=== PATIENT | male | born 1965 | race Caucasian/White ===

== ENCOUNTER → 2023-07-29 08:14 | Day surgery (SDC) | payer BC, SELFPAY ==
[2023-07-29 08:35] VITALS: BMI 46.1
== END ==
LOC: CATH 08:14
PROVIDERS: ATTENDING PHYSICIAN Internal Medicine Cardiovascular Disease; FAMILY PHYSICIAN Family Medicine
DX: I34.0 Nonrheumatic mitral (valve) insufficiency (principal); Z86.73 Personal history of transient ischemic attack (TIA), and cerebral infarction without residual deficits; I70.0 Atherosclerosis of aorta; I25.2 Old myocardial infarction; Z79.4 Long term (current) use of insulin; Z79.82 Long term (current) use of aspirin; Z79.84 Long term (current) use of oral hypoglycemic drugs; Z95.5 Presence of coronary angioplasty implant and graft; I10 Essential (primary) hypertension
CPT/HCPCS: 93312; 93320; 93325

== ENCOUNTER → 2023-08-11 17:47 | Outpatient (REF) | payer BC, SELFPAY | LOC: MRI 3T 17:47 | PROVIDERS: ATTENDING PHYSICIAN Specialist; FAMILY PHYSICIAN Family Medicine | DX: I63.112 Cerebral infarction due to embolism of left vertebral artery (principal); I63.111 Cerebral infarction due to embolism of right vertebral artery | CPT/HCPCS: 70544; 70547 ==

== ENCOUNTER → 2024-05-24 08:22 | Outpatient (REF) | payer BC, SELFPAY | LOC: HWRAD 08:22 | PROVIDERS: ATTENDING PHYSICIAN Nurse Practitioner Family; FAMILY PHYSICIAN Family Medicine; REFERRING PHYSICIAN Internal Medicine Cardiovascular Disease | DX: R06.02 Shortness of breath (principal) | CPT/HCPCS: 71046 ==

== ENCOUNTER 2025-03-01 19:30 | Observation (INO) | payer BC, SELFPAY ==
[2025-03-01 13:17] VITALS: BP 146/81
[2025-03-01 14:27] VITALS: BP 122/63
[2025-03-01 15:07] LABS: ALT (SGPT) 16 U/L (0-50); AST (SGOT) 18 U/L (17-59); Albumin 4.3 g/dl (3.5-5.0); Alkaline Phosphatase 75 U/L (38-126); Blood Urea Nitrogen 37 mg/dl (9-20); Calcium 9.1 mg/dl (8.4-10.2); Carbon Dioxide 22 mmol/L (22-30); Chloride 108 mmol/L (98-107); Glucose 103 mg/dl (70-99); Potassium 4.6 mmol/L (3.5-5.1); Sodium 139 mmol/L (135-145); Total Protein 7.0 g/dl (6.3-8.2); eGFR 18.87
[2025-03-01 15:11] LABS: Hematocrit 34.4 % (39.0-52.0); Hemoglobin 11.5 g/dL (13.0-18.0); Mean Corp Hgb Conc. 33.4 g/dL (33.0-37.0); Mean Corpuscular Volume 85.6 fL (80.0-94.0); Nucleated Red Blood Cells % 0 % (-); Platelet Count 205 10^3/uL (130-400); Red Cell Dist. Width 14.9 % (11.5-14.5)
--- NOTE | 2025-03-01 15:37 | ED.GENMED ---
History of Present Illness
<Alysha Dhaliwal FRONT MAKER LOCKSTITCH - Last Filed: 03/01/25 19:09>
General
Chief Complaint: Abnormal Lab Value
Source: patient
Exam Limitations: none
Time Seen by Provider: 03/01/25 14:21
Nursing documentation reviewed up to this point in time: agreed with
History of Present Illness
History of Present Illness:
59-year-old male with history of HTN, AK, cardiac stent 2021, GERD, IDDM presents at the request of his PCP for outpatient lab work yesterday showing a creatinine of 3.4 when previously patient states on 12/16 it was 1.72
Past History
<Alysha Dhaliwal, FRONT MAKER LOCKSTITCH - Last Filed: 03/01/25 19:09>
Past History
ED Past Medical History: CAD, GERD, HTN, NIDDM, AK, Other (Sleep apnea, Menieres disease) and Other (Meniere's)
ED Past Surgical History: Cardiac (Stent) and Orthopedic (Left ankle surgery)
Social History
Tobacco: Non-smoker
Alcohol: None
Personal: Single
Living: alone
Employment: Employed
Review of Systems
<Alysha Dhaliwal, FRONT MAKER LOCKSTITCH - Last Filed: 03/01/25 19:09>
Review of Systems
Allergies reviewed?: Yes
All Other Systems: ROS reviewed and negative except as documented in HPI and ROS
Constitutional: Denies fever, fatigue or chills
Respiratory: Denies trouble breathing
Cardiac: Denies chest pain
ABD/GI: Denies abdominal pain, nausea, vomiting, diarrhea or anorexia
: Denies dysuria, frequency, difficulty voiding or urgency
Musculoskeletal: Reports no symptoms
Skin: Reports no symptoms
Neurological: Reports no symptoms
Phy Exam
<Alysha Dhaliwal, FRONT MAKER LOCKSTITCH - Last Filed: 03/01/25 19:09>
Physical Exam
Physical Exam:
GENERAL: No acute distress. A&Ox3.
CONSTITUTIONAL: Afebrile.
EYES: clear, conjunctivae normal
ENMT: moist mucus membranes, Pharynx nl
RESPIRATORY: Regular respirations, nonlabored, lungs clear.
CARDIOVASCULAR: Regular rate and rhythm, no murmurs, no rubs.
GI: Soft, nontender, normal BS
MUSCULOSKELETAL: Moves with ease. Well perfused.
SKIN: Warm, dry, pink
PSYCH: Normal mood and affect. Well kept, interactive and appropriate
NEUROLOGIC: Awake, alert and oriented. No focal neurological deficits
Course
<Alysha Dhaliwal NP - Last Filed: 03/01/25 19:09>
Orders/Labs/Results
Orders:
Orders
03/01/25 13:40
Bladder Scan- Treatment ONCE
03/01/25 14:39
Complete Blood Count/With Diff Urgent
Comprehensive Metabolic Panel Urgent
03/01/25 16:25
US Renal With Bladder Urgent
Comment:
Reason For Exam: New onset kidney failure
03/01/25 16:42
Urinalysis Reflex To Culture Urgent
Date Specimen was Collected: 03/01/25
Time Specimen was Collected: 16:41
Urine Microscopic Reflex Cult Urgent
03/01/25 18:00
0.9% Sodium Chloride 1000 ml [Nss] 1,000 ml IV 150 mls/hr
03/01/25 19:06
NEPHROLOGY CONSULT Urgent
Consulting Provider: Cherry Juarez
Was physician already notified: Yes
Reason for consult: New onset renal insufficiency
Abnormal Lab Results
03/01/25 03/01/25
14:39 16:42
RBC 4.02 L 10^6/uL
(4.70-6.10)
Hgb 11.5 L g/dL
(13.0-18.0)
Hct 34.4 L %
(39.0-52.0)
RDW 14.9 H %
(11.5-14.5)
Chloride 108 H mmol/L
(98-107)
BUN 37 H mg/dl
(9-20)
Creatinine 3.6 H mg/dL
(0.7-1.3)
Glucose 103 H mg/dl
(70-99)
Urine Bacteria (Reflex) Few A
(Negative)
Urine Glucose 4+ A
(Negative)
Urine Albumin (Reflex) 1+ A
(Neg - Trace)
03/01/25 14:39
03/01/25 14:39
Vital Signs
Initial and Last Documented VS:
Initial Vital Signs
Temp Pulse Resp BP Pulse Ox
36.6 C 69 16 146/81 98
03/01/25 13:17 03/01/25 13:17 03/01/25 13:17 03/01/25 13:17 03/01/25 13:17
Last Documented Vital Signs
Temp Pulse Resp BP Pulse Ox
36.6 C 0 17 122/63 98
03/01/25 13:17 03/01/25 15:04 03/01/25 14:30 03/01/25 14:27 03/01/25 15:38
Bar Finish Operator consulted with Physician
Bar Finish Operator consulted with physician?: Yes
Name of Physician Consulted: Maddy
<Lee Castañeda, DO - Last Filed: 03/01/25 19:14>
Orders/Labs/Results
Orders:
Orders
03/01/25 13:40
Bladder Scan- Treatment ONCE
03/01/25 14:39
Complete Blood Count/With Diff Urgent
Comprehensive Metabolic Panel Urgent
03/01/25 16:25
US Renal With Bladder Urgent
Comment:
Reason For Exam: New onset kidney failure
03/01/25 16:42
Urinalysis Reflex To Culture Urgent
Date Specimen was Collected: 03/01/25
Time Specimen was Collected: 16:41
Urine Microscopic Reflex Cult Urgent
03/01/25 18:00
0.9% Sodium Chloride 1000 ml [Nss] 1,000 ml IV 150 mls/hr
03/01/25 19:06
NEPHROLOGY CONSULT Urgent
Consulting Provider: Cherry Juarez
Was physician already notified: Yes
Reason for consult: New onset renal insufficiency
Abnormal Lab Results
03/01/25 03/01/25
14:39 16:42
RBC 4.02 L 10^6/uL
(4.70-6.10)
Hgb 11.5 L g/dL
(13.0-18.0)
Hct 34.4 L %
(39.0-52.0)
RDW 14.9 H %
(11.5-14.5)
Chloride 108 H mmol/L
(98-107)
BUN 37 H mg/dl
(9-20)
Creatinine 3.6 H mg/dL
(0.7-1.3)
Glucose 103 H mg/dl
(70-99)
Urine Bacteria (Reflex) Few A
(Negative)
Urine Glucose 4+ A
(Negative)
Urine Albumin (Reflex) 1+ A
(Neg - Trace)
03/01/25 14:39
03/01/25 14:39
Vital Signs
Initial and Last Documented VS:
Initial Vital Signs
Temp Pulse Resp BP Pulse Ox
36.6 C 69 16 146/81 98
03/01/25 13:17 03/01/25 13:17 03/01/25 13:17 03/01/25 13:17 03/01/25 13:17
Last Documented Vital Signs
Temp Pulse Resp BP Pulse Ox
36.6 C 0 17 122/63 98
03/01/25 13:17 03/01/25 15:04 03/01/25 14:30 03/01/25 14:27 03/01/25 15:38
<Alysha Dhaliwal FRONT MAKER LOCKSTITCH - Last Filed: 03/01/25 19:09>
MDM/Problems Addressed
Differential Diagnosis Includes:
Acute renal insufficiency
MDM/Problems Addressed:
59-year-old male with history of HTN, AK, cardiac stent 2021, GERD, IDDM presents at the request of his PCP for outpatient lab work yesterday showing a creatinine of 3.4 when previously patient states on 12/16 it was 1.72 at his Endocrinologists
office.
Pt denies any systemic symptoms.
CBC with no clinically significant abnormality
CMP: BUN/Creat 37/3.6 GFR 18.87 otherwise normal UA:
Negative save for plus for glucose and +1 albumin
[address] Neph[address] Juarez.
6:15 PM:
Ultrasound renal with bladder radiology report read: IMPRESSION: No evidence for pelvicalyceal dilation of either kidney. Renal parenchymal thickness is preserved bilaterally.
No focal abnormality urinary bladder. Ureteral jets are not visualized. Postvoid bladder residual with estimated volume of 79 cc.
7:00 PM:
Results discussed with Dr. Juarez who requests patient be admitted, IVF's and have labs rechecked tomorrow
Hospitalist notified of admission
<Alysha Dhaliwal, FRONT MAKER LOCKSTITCH - Last Filed: 03/01/25 19:09>
*Pulse Oximetry
SaO2: 98
Oxygen Mode of Delivery: Room air
Patient hypoxic: not evaluated
*Critical Care Note
Total Time (30-74mins, 75-104mins- exclusive of procedures): Not Applicable
ED Attending Note
<Alysha Dhaliwal FRONT MAKER LOCKSTITCH - Last Filed: 03/01/25 19:09>
-
Portions of this chart may have been created with voice recognition software.� Occasional wrong word or��sound alike� substitutions may have occurred due to the inherent limitations of voice recognition software.
<Lee Castañeda DO - Last Filed: 03/01/25 19:14>
ED Attending Note
Patient seen and examined by attending physician: Yes
I performed the substantive portion of visit, reviewed & personally made and approve the management plan that is documented in note by myself or MELISSA.: Yes
ED Attending Note:
I evaluated patient bedside. The patient has KAVIN; he was given IV fluids. Creatinine today is 3.6 up from 1.2 in 2022. Postvoid residual relatively low and otherwise renal ultrasound unremarkable. Nephrology has been contacted.
Discharge Plan
Departure
Patient Disposition: Admit
Date of Disposition: 03/01/25
Time of Disposition: 19:07
Admit to: Med/Surg
Presentation/result/management discussed w/ accepting MD/DO: Hospitalist
Patient with high blood pressure during this ER visit?: No
Condition: Good
Discharge Problem:
Acute renal insufficiency
Prescriptions:
No Action
allopurinol 100 MG tablet
100 mg PO QPM
metformin 1,000 MG tablet
1,000 mg PO BID
losartan [Cozaar] 100 MG tablet
100 mg PO HS
magnesium 200 MG tablet
500 mg PO DAILY
insulin glargine [Lantus Solostar U-100 Insulin] 300 UNITS/3 ML insulin pen
32 units SC HS
insulin aspart U-100 [Novolog FlexPen U-100 Insulin] 300 UNITS/3 ML insulin pen
0 units SC AC
Patient Comments:
<70 0
100-149 15
150-199 17
200-249 19
250-299 21
300-348 23
350 + 25 and call
atorvastatin 80 MG tablet
80 mg PO QPM Qty: 30 11RF
aspirin 81 MG tablet,chewable
81 mg PO DAILY 0RF
lidocaine 1 PATCH adhesive patch,medicated
1 patch topical DAILY Qty: 30 0RF
Rx Instructions:
ON FOR 12 HOURS, OFF FOR 12 HOURS
gabapentin 800 mg Tablet
800 mg PO HS
meclizine 25 mg Tablet
25 mg PO DAILY PRN (Reason: vertigo)
triamterene-hydrochlorothiazid 37.5-25 mg Tablet
1 tab PO BID
Baqsimi 3 mg/actuation [place],Non-Aerosol
3 mg INTRANASAL PRN PRN (Reason: hypoglycemia )
Mounjaro 7.5 mg/0.5 mL Pen Injector
7.5 mg SC QWEEK
metoprolol succinate 50 MG tablet extended release 24 hr
25 mg PO HS
Jardiance 10 MG tablet
10 mg PO QPM
Referrals:
Rafael Cortes, DO [Family Provider, Family Practice]
Interventions
Interventions:
*Risk Screen - Suicide Last Done: 03/01/25 13:17
*Neglect/Abuse Screening Last Done: 03/01/25 13:17
*ED COVID-19 Vaccine History Last Done: 03/01/25 15:09
*ED Influenza Vaccine History Last Done: 03/01/25 15:09
Discharge Date and Time
Print Language: NEPALI
[2025-03-01 16:51] LABS: Urine Character Clear (Clear)
[2025-03-01 16:59] LABS: Urine Red Blood Cell 0-2 /HPF (0-2)
--- NOTE | 2025-03-01 18:01 | W.CON.NEPH ---
Consultation
-
Date/Time Consultation Requested: 03/01/25 5pm
Date/Time Consultation Performed: 03/01/25 6 pm
Requesting Provider: Alysha Dhaliwal
Performing Provider: Demetri
Reason for Consultation: kavin
Medical History
-
Chief Complaint: kavin
History of Present Illness:
59-year-old male with history of HTN, AL, cardiac stent 2021, GERD, IDDM presents at the request of his PCP for outpatient lab work yesterday showing a creatinine of 3.4 when previously patient states on 12/16 it was 1.72
renal consult for KAVIN
no nsaid use
dec po intake on going on glp1 inh though no worse over past yr
no new rx in past year
Past Medical History
HTN, AL, cardiac stent 2021, GERD, IDDM
Social History
Tobacco: Non-Smoker
Alcohol: None
Allergies / Home Medications
Allergy/AdvReac Type Severity Reaction Status Date / Time
No Known Allergies Allergy Verified 03/01/25 13:17
�Medication �Instructions �Recorded �Confirmed �Type
allopurinol 100 mg tablet 100 mg PO QPM Gout 09/06/18 07/29/23 History
losartan 100 mg tablet (Cozaar) 100 mg PO HS Blood pressure 09/06/18 07/29/23 History
magnesium 200 mg tablet 500 mg PO DAILY Supplement 09/06/18 07/29/23 History
metformin 1,000 mg tablet 1,000 mg PO BID Diabetes 09/06/18 07/29/23 History
insulin aspart U-100 100 unit/mL 0 units SC AC Diabetes 06/01/21 07/29/23 History
(3 mL) subcutaneous pen (Novolog
FlexPen U-100 Insulin aspart)
insulin glargine 100 unit/mL (3 32 units SC HS Diabetes 06/01/21 07/29/23 History
mL) subcutaneous pen (Lantus
Solostar U-100 Insulin)
aspirin 81 mg chewable tablet 81 mg PO DAILY 06/04/21 07/29/23 Rx
atorvastatin 80 mg tablet 80 mg PO QPM Heart 06/04/21 07/29/23 Rx
disease/condition #30 tabs
lidocaine 5 % topical patch 1 patch topical DAILY Pain #30 06/04/21 07/29/23 Rx
patches
empagliflozin 10 mg tablet 10 mg PO QPM Diabetes 07/29/23 07/29/23 History
(Jardiance)
gabapentin 800 mg tablet 800 mg PO HS 07/29/23 07/29/23 History
glucagon 3 mg/actuation nasal 3 mg intranasal PRN PRN 07/29/23 07/29/23 History
spray (Baqsimi) hypoglycemia
meclizine 25 mg tablet 25 mg PO DAILY PRN vertigo 07/29/23 07/29/23 History
metoprolol succinate 50 mg 25 mg PO HS Heart disease/condition 07/29/23 07/29/23 History
tablet,extended release 24 hr
tirzepatide 7.5 mg/0.5 mL 7.5 mg SC QWEEK 07/29/23 07/29/23 History
subcutaneous pen injector
(Mounjaro)
triamterene 37.5 1 tab PO BID 07/29/23 07/29/23 History
mg-hydrochlorothiazide 25 mg tablet
Review of Systems
-
All other systems: Negative unless noted
Physical Exam
Vital Signs
Vital Signs
Temp Pulse Resp BP Pulse Ox
97.8 F 0 17 122/63 98
03/01/25 13:17 03/01/25 15:04 03/01/25 14:30 03/01/25 14:27 03/01/25 15:38
Lab Results
WBC 8.0 10^3/uL (4.8-10.8) 03/01/25 14:39
RBC 4.02 10^6/uL (4.70-6.10) L 03/01/25 14:39
Hgb 11.5 g/dL (13.0-18.0) L 03/01/25 14:39
Hct 34.4 % (39.0-52.0) L 03/01/25 14:39
Plt Count 205 10^3/uL (130-400) 03/01/25 14:39
Sodium 139 mmol/L (135-145) 03/01/25 14:39
Potassium 4.6 mmol/L (3.5-5.1) 03/01/25 14:39
Chloride 108 mmol/L (98-107) H 03/01/25 14:39
Carbon Dioxide 22 mmol/L (22-30) 03/01/25 14:39
BUN 37 mg/dl (9-20) H 03/01/25 14:39
Creatinine 3.6 mg/dL (0.7-1.3) H 03/01/25 14:39
eGFR 18.87 03/01/25 14:39
Glucose 103 mg/dl (70-99) H 03/01/25 14:39
Calcium 9.1 mg/dl (8.4-10.2) 03/01/25 14:39
Albumin 4.3 g/dl (3.5-5.0) 03/01/25 14:39
Physical Exam
General no acute distress
HEENT no cephalic atraumatic extraocular muscle intact no scleral icterus no JVD neck supple
lungs clear to auscultation bilateral
heart regular S1-S2 positive
abdomen soft nontender positive bowel sounds
extremities no edema pulses present bilateral
Neurologically nonfocal alert and oriented x 3
Skin no lesions no abrasions no petechiae
Psych normal affect no bizarre behavior
Data Reviewed
-
Ultrasound: Image Personally Visualized and interpreted
Labs: Labs Reviewed by me and Discussed with Patient
Assessment/Plan
-
59-year-old male with history of HTN, AL, cardiac stent 2021, GERD, IDDM presents at the request of his PCP for outpatient lab work yesterday showing a creatinine of 3.4 when previously patient states on 12/16 it was 1.72
imp
kavin- Ua neg/US no obst=RX induced?
dm
htn
obese
plan
hold arb/glp1/sglt2 inh
nss 150hr
am labs
[2025-03-01] MEDS: NSS 1000 IV ×2 (18:15→21:50)
--- NOTE | 2025-03-01 19:11 | HPS.HSE ---
Family Physician
-
Family Physician: Rafael Cortes
Chief Complaint
-
Abnormal creatinine
History of Present Illness
Patient is 59-year-old with past medical history of CAD s/p cardiac stenting, obstructive sleep apnea on CPAP, insulin-dependent diabetes, hypertension, gout, COPD/asthma presenting to the emergency department with elevated creatinine.
Patient had a routine blood work showing a creatinine that has been elevated to 3.6 and was sent into the emergency department by PMD for further evaluation. Creatinine was 1.7 on December 15. It went up to 3.6 today. Patient reports minimal NSAID
use stating that he uses ibuprofen about 2-3 times per month according to him. This is for chronic back pain. He has not been on any new medications. He denies any contrast exposures. Denies any recent diarrhea or vomiting. He has no evidence
of any acute blood loss. He has no recent travels or sick contact. He denies any urinary symptoms including hematuria, urgency frequency or incontinence. He has no history of urinary retention. Denies any recent travels or sick contacts. He
denies any rash.
In the emergency department patient was afebrile, blood pressure was 120/63 with a pulse of 87 and he was satting 98% on room air. CBC was unremarkable, electrolytes were normal. BUN and creatinine were 36 and 3.60 from a baseline of 1.2 in 2022.
UA shows 1+ albumin but otherwise unremarkable.
Renal ultrasound no evidence for pelvicalyceal dilation of either kidney. Renal parenchymal thickness is preserved bilaterally. No focal abnormality urinary bladder. Ureteral jets are not visualized. Postvoid bladder residual with estimated volume
of 79 cc.
Medical History
Past Medical History
Past Medical History: Reports Asthma, CAD (Status post cardiac stents 2021), COPD, HTN, IDDM and Other (gout, SAE)
Past Surgical History: Reports Orthopedic
Social History
Tobacco: Non-smoker
Alcohol: Occasional
Drug: None
Family History
Family History: Not pertinent
Allergies / Home Medications
Allergies reflects when Allergies were last updated in [facility].
Home Medications with original date entered in [facility]
Allergy/Medication List:
Allergies
Allergy/AdvReac Type Severity Reaction Status Date / Time
No Known Allergies Allergy Verified 03/01/25 13:17
Home Medications
allopurinol 100 mg tablet 100 mg PO QPM Gout 09/06/18
losartan 100 mg tablet (Cozaar) 100 mg PO HS Blood pressure 09/06/18
magnesium 200 mg tablet 500 mg PO DAILY Supplement 09/06/18
metformin 1,000 mg tablet 1,000 mg PO BID Diabetes 09/06/18
insulin aspart U-100 100 unit/mL (3 mL) subcutaneous pen (Novolog FlexPen U-100 Insulin aspart) 0 units SC AC Diabetes 06/01/21
insulin glargine 100 unit/mL (3 mL) subcutaneous pen (Lantus Solostar U-100 Insulin) 32 units SC HS Diabetes 06/01/21
aspirin 81 mg chewable tablet 81 mg PO DAILY 06/04/21
atorvastatin 80 mg tablet 80 mg PO QPM Heart disease/condition #30 tabs 06/04/21
lidocaine 5 % topical patch 1 patch topical DAILY Pain #30 patches 06/04/21
empagliflozin 10 mg tablet (Jardiance) 10 mg PO QPM Diabetes 07/29/23
gabapentin 800 mg tablet 800 mg PO HS 07/29/23
glucagon 3 mg/actuation nasal spray (Baqsimi) 3 mg intranasal PRN PRN hypoglycemia 07/29/23
meclizine 25 mg tablet 25 mg PO DAILY PRN vertigo 07/29/23
metoprolol succinate 50 mg tablet,extended release 24 hr 25 mg PO HS Heart disease/condition 07/29/23
tirzepatide 7.5 mg/0.5 mL subcutaneous pen injector (Mounjaro) 7.5 mg SC QWEEK 07/29/23
triamterene 37.5 mg-hydrochlorothiazide 25 mg tablet 1 tab PO BID 07/29/23
Review of Systems
-
Constitutional: Reports No Symptoms
EENT: Reports No Symptoms
Respiratory: Reports No Symptoms
Cardiac: Reports No Symptoms
Abdomen/GI: Reports No Symptoms
: Reports No Symptoms
Musculoskeletal: Reports No Symptoms
Skin: Reports No Symptoms
Neurological: Reports No Symptoms
Endocrine: Reports No Symptoms
Hematologic/Lymphatic: Reports No Symptoms
Psych: Reports No Symptoms
Physical Exam
Vital Signs
Vital Signs
Temp Pulse Resp BP Pulse Ox
97.8 F 0 17 122/63 98
03/01/25 13:17 03/01/25 15:04 03/01/25 14:30 03/01/25 14:27 03/01/25 15:38
Physical Exam
General: Well Developed, Well Nourished and No Apparent Distress
HEENT: NormoCephalic, Moist mucous membranes and Atraumatic
Respiratory: Clear
Cardiac: S1/S2 and Regular Rhythm; No Murmur or Rub
GI: Soft, Non Tender, Non Distended and Normal Bowel Sounds; No Organomegaly
Rectal: Deferred by Provider
Musculoskeletal: No Clubbing, No Cyanosis and No Edema
Skin: No Rash
Neuro: Nonfocal/grossly intact
Laboratory Results
-
03/01/25 14:39
03/01/25 14:39
Laboratory Results
Total Bilirubin 1.3 mg/dl (0.2-1.3) 03/01/25 14:39
AST 18 U/L (17-59) 03/01/25 14:39
ALT 16 U/L (0-50) 03/01/25 14:39
Alkaline Phosphatase 75 U/L (38-126) 03/01/25 14:39
Data Reviewed
-
Ultrasound: Report Reviewed by me
Lab Data: Labs Reviewed by me
Old Records: Reviewed
Impression/Plan
-
IMPRESSION:
59-year-old with past medical history significant for insulin-dependent diabetes, hypertension, obstructive sleep apnea, CAD status post stenting presenting to the emergency department with worsening renal function.
PLAN:
KAVIN - No acute insults, hypovolemia or hypotension. Decreased intake on Mounjaro. U/A without nephrotic proteinuria. U/S without urinary retention, hydronephrosis or other anomaly. Endorsed nsaid use but only sparingly and is on arb, hctz,
allopurinol and jardiance
- admit to med/surg
- appreciate renal input
- holding arb, jardiance, mounjaro
- IV NSS 150 ml/hr
- avoid nephrotoxins
- nephrology consulted and to see in am, likely to be discharged tomorrow if creatinine stble.
DM II
- hold metformin
- Lantus 20 at bedtime
- NovoLog 5, 10, and 20 with breakfast lunch and dinner
- moderate sliding scale insulin for now
- holding jardiance and Mounjaro
CAD
- continue aspirin/statin
- continue metoprolol succinate
SAE
- cpap hs
DVT PPX - heparin sq
code status - Full Code
[2025-03-01 20:38] VITALS: BMI 43.8
[2025-03-01 20:57] VITALS: BP 132/54
[2025-03-01 21:37] LABS: Glucose - Point of Care 127 mg/dl (70-99)
[2025-03-01] MEDS: NEURONTIN 800 MG PO (21:49)
[2025-03-01] MEDS: LANTUS 0.2 UNITS SC (21:49)
[2025-03-01] MEDS: TOPROL XL 25 MG PO (21:49)
[2025-03-01 23:05] VITALS: BP 143/75
[2025-03-01] MEDS: HEPARIN 5000 UNITS SC (23:13)
[2025-03-02] MEDS: NSS 1000 IV ×2 (05:05→12:10)
--- NOTE | 2025-03-02 06:08 | W.PN.HOSP.TC ---
Today's Communication/Plan
-
Discharge
Assessment / Plan
Assessment / Plan
Physical Exam
General: no acute distress, appears comfortable, obese
HEENT: NormoCephalic, Moist mucous membranes and Atraumatic
Respiratory: Clear
Cardiac: S1/S2 and Regular Rhythm; No Murmur or Rub
GI: Soft, Non Tender, Non Distended and Normal Bowel Sounds; No Organomegaly
Musculoskeletal: No Clubbing, No Cyanosis and No Edema
Skin: No Rash
Neuro: AOx3 conversant coherent
Psych: Calm
59M hx insulin-dependent diabetes, hypertension, obstructive sleep apnea, CAD status post stenting presenting to the emergency department with worsening renal function.
PLAN:
KAVIN vs Progressive CKD - No acute insults, hypovolemia or hypotension. Decreased intake on Mounjaro. U/A without nephrotic proteinuria. U/S without urinary retention, hydronephrosis or other anomaly. Endorsed nsaid use but only sparingly and is
on arb, hctz, allopurinol and jardiance
- holding arb, jardiance, mounjaro
- IV NSS 150 ml/hr
- avoid nephrotoxins
- nephrology consult appreciated stable for discharge with close outpt follow up
Hx HTN
-BP relatively well controlled at this time on metoprolol only
-holding losartan triamterene-HCTZ d/t KAVIN as above
DM II
- sugars possibly over controlled A1c 6.1 (goal Diabetes mgmt A1c<7.0)
- metformin contraindicated with eGFR<30
- basal bolus insulin
- moderate sliding scale insulin
- holding Jardiance and Mounjaro
HLD
-cont Statin
Diabetic Neuropathy
-home Gabapentin to be reduced to 600 mg HS from 800 mg Hs d/t renal insufficiency as above
CAD
- continue aspirin/statin
- continue metoprolol succinate
SAE
- cpap hs
DVT PPX - heparin sq
code status - Full Code
Total Time Preparing Discharge __40 minutes including examination of the patient, summary of the hospital stay, instructions for continuing care to all relevant caregivers; and preparation of discharge records, prescriptions, and referral
forms if necessary.
Anticipated Discharge: Today
Subjective/Interval History
-
Date of Service: March 02, 2025
Seen and examined at bedside in no acute distress, overall reports feeling well. denies new acute issues at this time. Eager to go home
Objective Data
-
Labs:
Laboratory Results
03/02/25
06:00
Sodium Pending
Potassium Pending
Chloride Pending
Carbon Dioxide Pending
BUN Pending
Creatinine Pending
Glucose Pending
Calcium Pending
Vital Signs:
Vital Signs
Temp Pulse Resp BP Pulse Ox
98.5 F 51 19 143/75 98
03/01/25 23:05 03/01/25 23:05 03/01/25 23:05 03/01/25 23:05 03/01/25 23:05
[2025-03-02 07:07] LABS: Blood Urea Nitrogen 35 mg/dl (9-20); Calcium 8.8 mg/dl (8.4-10.2); Carbon Dioxide 23 mmol/L (22-30); Chloride 110 mmol/L (98-107); Estimated Creatinine Clearance 35 ml/min; Glucose 123 mg/dl (70-99); Magnesium 2.3 mg/dl (1.6-2.3); Potassium 4.4 mmol/L (3.5-5.1); Sodium 136 mmol/L (135-145); eGFR 20.21
[2025-03-02 07:39] VITALS: BP 94/62
[2025-03-02 07:40] LABS: Glucose - Point of Care 129 mg/dl (70-99)
[2025-03-02] MEDS: HEPARIN 5000 UNITS SC (08:54)
[2025-03-02] MEDS: LOW STRENGTH ASPIRIN 81 MG PO (08:54)
[2025-03-02 09:03] LABS: Glycohemoglobin (HgbA1c) 6.1 % (4.0-5.9)
--- NOTE | 2025-03-02 09:52 | CM ---
Addendum entered by Kianna Quintana 03/02/25 16:12:
discharged today
no needs
transport self as he drove to
IMM n/a
Original Note:
Patient seen at bedside
IA complete
OBS status-form explained & signed. In chart
dx: acute renal insuff
lives alone in a duplex, 0 shanae, flight of steps to bed/bath
PLOF: Independent, drives
DME: cane, CPAP
PCP: Dr. Cortes
Pharmacy: [facility]
PLAN: Home, no needs anticipated, CM to continue to follow for discharge planning/needs
[2025-03-02 11:41] LABS: Glucose - Point of Care 127 mg/dl (70-99)
[2025-03-02] MEDS: LIDOCAINE 4% PATCH 2 PATCH TOPICAL (12:41)
[2025-03-02 14:52] VITALS: BP 147/54
--- NOTE | 2025-03-02 15:25 | W.DCSUMMARY ---
Discharge Summary
Discharge Data
Date of Admission: 03/01/25
Date of Discharge: 03/02/25
-
Pending Results: No
Discharge Plan
-
Patient Disposition: Home (Routine Discharge)
Discharge Diagnosis/Procedures: Acute Kidney Injury vs progression Chronic Kidney Disease (Creatine 3.4)
Condition: Fair
Diet: Diabetic, Carb Controlled
Activity: As tolerated
Driving Restrictions: As prior to admission
Bathing Restrictions: None
Blood Work: Repeat BMP Friday following discharge with results to be forwarded to primary care provider Ambulatory Technologist, and Gis Web Developer. Script provided to facilitate
Activity Restrictions/Additional Instructions:
Follow up with primary care provider and Nephrology in 1 week of discharge.
Keep a daily log of your blood pressure to review with your primary care provider and Nephrology in follow up.
Referrals:
Peewee Mosquera DO [Active, Nephrology] - in one week
Rafael Cortes DO [Family Provider, [facility]] - in one week
Additional Discharge Medication Instructions: Gabapentin has been reduced to 600 mg bedtime due to kidney dysfunction concerns.
Amlodipine 5 mg daily prescribed for hypertension. Hold if systolic blood pressure <140.
Jardiance, Losartan, metformin, Mounjaro, and triamterene-hydrochlorothiazide have been placed on hold due to concerns for severe Kidney Injury/Dysfunction. Please follow up with primary care provider, nephrology, and/or Endocrinology to determine
when safe to resume aforementioned medications.
Prescriptions:
New
gabapentin 600 mg tablet
600 mg PO HS Qty: 30 0RF
amlodipine 5 mg tablet
5 mg PO DAILY Qty: 30 0RF
Rx Instructions:
Hold is SBP<140
Continued
allopurinol 100 MG tablet
100 mg PO QPM
magnesium 200 MG tablet
500 mg PO DAILY
insulin glargine [Lantus Solostar U-100 Insulin] 300 UNITS/3 ML insulin pen
28 units SC HS
insulin aspart U-100 [Novolog FlexPen U-100 Insulin] 300 UNITS/3 ML insulin pen
0 units SC AC
Patient Comments:
<70 0
100-149 15
150-199 17
200-249 19
250-299 21
300-348 23
350 + 25 and call
atorvastatin 80 MG tablet
80 mg PO QPM Qty: 30 11RF
aspirin 81 MG tablet,chewable
81 mg PO DAILY 0RF
lidocaine 1 PATCH adhesive patch,medicated
1 patch topical DAILY Qty: 30 0RF
Rx Instructions:
ON FOR 12 HOURS, OFF FOR 12 HOURS
meclizine 25 mg Tablet
25 mg PO DAILY PRN (Reason: vertigo)
Baqsimi 3 mg/actuation [place],Non-Aerosol
3 mg INTRANASAL PRN PRN (Reason: hypoglycemia )
metoprolol succinate 50 MG tablet extended release 24 hr
25 mg PO HS
Held
metformin 1,000 MG tablet
1,000 mg PO BID
Hold Instructions: On hold due to Kidney Dysfunction. Follow up with primary care provider or Nephrology to determine when safe to resume.
losartan [Cozaar] 100 MG tablet
100 mg PO HS
Hold Instructions: On hold due to Kidney Dysfunction. Follow up with primary care provider or Nephrology to determine when safe to resume.
triamterene-hydrochlorothiazid 37.5-25 mg Tablet
1 tab PO BID
Hold Instructions: On hold due to Kidney Dysfunction. Follow up with primary care provider or Nephrology to determine when safe to resume.
Mounjaro 7.5 mg/0.5 mL Pen Injector
7.5 mg SC QWEEK
Hold Instructions: On hold due to Kidney Dysfunction. Follow up with primary care provider, Nephrology, or Gis Web Developer to determine when safe to resume.
Jardiance 10 MG tablet
10 mg PO QPM
Hold Instructions: On hold due to Kidney Dysfunction. Follow up with primary care provider or Nephrology to determine when safe to resume.
Discontinued
gabapentin 800 mg Tablet
800 mg PO HS
Discharge Orders:
Discharge Patient (As Directed); Ordered 03/02/25
Ordered By: Chalo Krueger
Discharge Date and Time
Print Language: SLOVAK
--- NOTE | 2025-03-02 15:50 | W.PN.NEPH.PH ---
Today's Communication / Plan
-
Okay for discharge from renal standpoint
Assessment/Plan
-
59-year-old male with history of HTN, [place], cardiac stent 2021, GERD, IDDM presents at the request of his PCP for outpatient lab work yesterday showing a creatinine of 3.4 when previously patient states on 12/16 it was 1.72
imp
suha- Ua neg/US no obst=RX induced?
dm
htn
obese
plan
hold arb/glp1/sglt2 inh
Creatinine improved slightly. Ultrasound within normal limits urinalysis bland
Okay with discharge follow-up with us next week with repeat blood work.
I discussed with primary hospital
-
-
Date of Service: March 02, 2025
CC / HPI / ROS
-
No chest pain shortness of breath nausea vomiting
10 point view of systems obtained all else negative
Labs
-
Labs:
WBC 8.0 10^3/uL (4.8-10.8) 03/01/25 14:39
RBC 4.02 10^6/uL (4.70-6.10) L 03/01/25 14:39
Hgb 11.5 g/dL (13.0-18.0) L 03/01/25 14:39
Hct 34.4 % (39.0-52.0) L 03/01/25 14:39
Plt Count 205 10^3/uL (130-400) 03/01/25 14:39
Sodium 136 mmol/L (135-145) 03/02/25 06:23
Potassium 4.4 mmol/L (3.5-5.1) 03/02/25 06:23
Chloride 110 mmol/L (98-107) H 03/02/25 06:23
Carbon Dioxide 23 mmol/L (22-30) 03/02/25 06:23
BUN 35 mg/dl (9-20) H 03/02/25 06:23
Creatinine 3.4 mg/dL (0.7-1.3) H 03/02/25 06:23
eGFR 20.21 03/02/25 06:23
Glucose 123 mg/dl (70-99) H 03/02/25 06:23
Calcium 8.8 mg/dl (8.4-10.2) 03/02/25 06:23
Phosphorus 4.9 mg/dl (2.5-4.5) H 03/02/25 06:23
Albumin 4.3 g/dl (3.5-5.0) 03/01/25 14:39
Physical Exam
-
Vital Signs:
Vital Signs
Temp Pulse Resp BP Pulse Ox
97.7 F 52 18 147/54 98
03/02/25 14:52 03/02/25 14:52 03/02/25 14:52 03/02/25 14:52 03/02/25 14:52
Respiratory:: Bilateral: CTA
Lung Excursion:: Normal
Abdomen:: Soft
Bowel Sounds:: Normal
Extremity Edema:: None: Bilateral:
== END 2025-03-02 16:22 | disposition home or self-care (01) ==
LOC: 3 WEST ACU 19:30
PROVIDERS: Registered Nurse; ADMITTING PHYSICIAN Internal Medicine; ATTENDING PHYSICIAN Internal Medicine; EMERGENCY PHYSICIAN Emergency Medicine; FAMILY PHYSICIAN Family Medicine; OTHER PHYSICIAN Internal Medicine Nephrology
DX: N17.9 Acute kidney failure, unspecified (principal); R79.89 Other specified abnormal findings of blood chemistry; I10 Essential (primary) hypertension; E11.29 Type 2 diabetes mellitus with other diabetic kidney complication; K21.9 Gastro-esophageal reflux disease without esophagitis; I25.2 Old myocardial infarction; G47.33 Obstructive sleep apnea (adult) (pediatric); I25.10 Atherosclerotic heart disease of native coronary artery without angina pectoris; E11.40 Type 2 diabetes mellitus with diabetic neuropathy, unspecified; E66.9 Obesity, unspecified; G89.29 Other chronic pain; M54.9 Dorsalgia, unspecified; R39.198 Other difficulties with micturition; E78.5 Hyperlipidemia, unspecified; M10.9 Gout, unspecified; J44.89 Other specified chronic obstructive pulmonary disease; H81.09 Meniere's disease, unspecified ear; Z95.5 Presence of coronary angioplasty implant and graft; Z79.84 Long term (current) use of oral hypoglycemic drugs; Z79.4 Long term (current) use of insulin; Z79.82 Long term (current) use of aspirin; Z79.85 Long-term (current) use of injectable non-insulin antidiabetic drugs; Z68.41 Body mass index [BMI] 40.0-44.9, adult; Z60.2 Problems related to living alone
CPT/HCPCS: 51798; 76770; 80048; 80053; 81003; 81015; 82962; 83036; 83735; 84100; 85025; 94660; 99285; G0378

== ENCOUNTER 2025-04-10 15:06 | Observation (INO) | payer BC, SELFPAY ==
[2025-04-10] VITALS (14 sets, daily range): BP systolic 146–197; BP diastolic 50–102; O2SAT 99; BMI 45.4; BMI 44.2
[2025-04-10 09:14] LABS: Hematocrit 32.6 % (39.0-52.0); Hemoglobin 11.1 g/dL (13.0-18.0); Mean Corp Hgb Conc. 34.0 g/dL (33.0-37.0); Mean Corpuscular Volume 85.6 fL (80.0-94.0); Nucleated Red Blood Cells % 0 % (-); Platelet Count 203 10^3/uL (130-400); Red Cell Dist. Width 14.0 % (11.5-14.5)
[2025-04-10 09:22] LABS: INR 1.08; PT 14.1 Sec (11.4-14.6)
[2025-04-10 09:38] LABS: Troponin I 0.019 ng/ml
[2025-04-10 09:49] LABS: ALT (SGPT) 14 U/L (0-50); AST (SGOT) 18 U/L (17-59); Albumin 4.1 g/dl (3.5-5.0); Alkaline Phosphatase 110 U/L (38-126); Blood Urea Nitrogen 18 mg/dl (9-20); Calcium 9.1 mg/dl (8.4-10.2); Carbon Dioxide 21 mmol/L (22-30); Chloride 110 mmol/L (98-107); Glucose 188 mg/dl (70-99); Potassium 4.2 mmol/L (3.5-5.1); Sodium 138 mmol/L (135-145); Total Protein 7.1 g/dl (6.3-8.2); eGFR 46.44
--- NOTE | 2025-04-10 11:35 | ED.GENMED ---
History of Present Illness
<Hemalatha Castro PA-C - Last Filed: 04/10/25 13:37>
General
Chief Complaint: Breathing Problem
Source: patient
Exam Limitations: none
Time Seen by Provider: 04/10/25 11:25
Nursing documentation reviewed up to this point in time: agreed with
History of Present Illness
History of Present Illness:
see MDM
Past History
<Hemalatha Castro PA-C - Last Filed: 04/10/25 13:37>
Past History
ED Past Medical History: CAD, GERD, HTN, NIDDM, [place], Other (Sleep apnea, Menieres disease) and Other (Meniere's)
ED Past Surgical History: Cardiac (Stent) and Orthopedic (Left ankle surgery)
Social History
Tobacco: Non-smoker
Alcohol: None
Personal: Single
Living: alone
Employment: Employed
Phy Exam
<Hemalatha Castro PA-C - Last Filed: 04/10/25 13:37>
Physical Exam
Physical Exam:
see MDM
Scores
<Hemalatha Castro PA-C - Last Filed: 04/10/25 13:37>
Heart Failure Risk
Heart Failure Risk Score: Not Applicable
Course
<Hemalatha Castro PA-C - Last Filed: 04/10/25 13:37>
Orders/Labs/Results
Orders:
Orders
04/10/25 08:51
EKG [Electrocardiogram (*1)] Urgent
Reason for Study: Shortness of Breath
EKG- Treatment ONCE
04/10/25 08:58
CR Chest - 2 Views Urgent
Comment:
Reason For Exam: SOB
US Periph Venous LOWER Ext Dale Urgent
Comment:
Reason For Exam: New onset swelling
04/10/25 09:02
Complete Blood Count/With Diff Urgent
Comprehensive Metabolic Panel Urgent
NT-proBNP Urgent
Prothrombin Time Urgent
Troponin I Urgent
04/10/25 11:50
CT Chest PE Study Urgent
Comment:
Reason For Exam: b/l leg sweling, exertional dyspnea
04/10/25 13:15
Furosemide [Lasix] 40 mg IV NOW STA
04/10/25 14:42
Admit/Transfer Patient As Directed
Co-Sign Provider:
Level of Care: Observation services
Assign to:: Telemetry
Physician / Group: Cassie/Hospitalist
Diagnosis: HTN Urgency, LE edema, BARR
Reason for Telemetry: Acute Heart Failure
Date to Stop Telemetry: 04/13/25
Time to Stop Telemetry: 11:00
Reason for Hospitalization: HTN Urgency, LE edema, BARR
04/10/25 14:43
PRN Pain Medication Management As Directed
May give lesser potent ordered pain med per pt: Yes
preference::
Protocol:: Medication orders for pain may be administered in a
manner that supports deferring to patient preference
when the pt is:
- Requesting an ordered lesser potent pain medication.
Least to most potent pain medications are defined
as: acetaminophen < NSAID < tramadol < opioids
(morphine, oxycodone, hydromorphone).
- Requesting a lesser dose of the same medication IF
ORDERED.
- Requesting a less intrusive route of administration
if both routes are prescribed by the provider (PO <
IV).
04/10/25 14:45
Code Status As Directed
Resuscitation Status: Full Code
04/13/25 11:00
DC Protocol for Telemetry ONCE
Abnormal Lab Results
04/10/25
09:02
RBC 3.81 L 10^6/uL
(4.70-6.10)
Hgb 11.1 L g/dL
(13.0-18.0)
Hct 32.6 L %
(39.0-52.0)
Chloride 110 H mmol/L
(98-107)
Carbon Dioxide 21 L mmol/L
(22-30)
Creatinine 1.7 H mg/dL
(0.7-1.3)
Glucose 188 H mg/dl
(70-99)
Total Bilirubin 2.0 H mg/dl
(0.2-1.3)
04/10/25 09:02
04/10/25 09:02
Vital Signs
Initial and Last Documented VS:
Initial Vital Signs
Temp Pulse Resp BP Pulse Ox
98.2 F 61 18 197/84 98
04/10/25 08:58 04/10/25 08:58 04/10/25 08:58 04/10/25 08:58 04/10/25 08:58
Last Documented Vital Signs
Temp Pulse Resp BP Pulse Ox
98.2 F 44 12 150/72 99
04/10/25 08:58 04/10/25 17:00 04/10/25 17:00 04/10/25 17:00 04/10/25 17:00
<Lei Ruff MD - Last Filed: 04/10/25 18:05>
Orders/Labs/Results
Orders:
Orders
04/10/25 08:51
EKG [Electrocardiogram (*1)] Urgent
Reason for Study: Shortness of Breath
EKG- Treatment ONCE
04/10/25 08:58
CR Chest - 2 Views Urgent
Comment:
Reason For Exam: SOB
US Periph Venous LOWER Ext Dale Urgent
Comment:
Reason For Exam: New onset swelling
04/10/25 09:02
Complete Blood Count/With Diff Urgent
Comprehensive Metabolic Panel Urgent
NT-proBNP Urgent
Prothrombin Time Urgent
Troponin I Urgent
04/10/25 11:50
CT Chest PE Study Urgent
Comment:
Reason For Exam: b/l leg sweling, exertional dyspnea
04/10/25 13:15
Furosemide [Lasix] 40 mg IV NOW STA
04/10/25 14:42
Admit/Transfer Patient As Directed
Co-Sign Provider:
Level of Care: Observation services
Assign to:: Telemetry
Physician / Group: Cassie/Hospitalist
Diagnosis: HTN Urgency, LE edema, BARR
Reason for Telemetry: Acute Heart Failure
Date to Stop Telemetry: 04/13/25
Time to Stop Telemetry: 11:00
Reason for Hospitalization: HTN Urgency, LE edema, BARR
04/10/25 14:43
PRN Pain Medication Management As Directed
May give lesser potent ordered pain med per pt: Yes
preference::
Protocol:: Medication orders for pain may be administered in a
manner that supports deferring to patient preference
when the pt is:
- Requesting an ordered lesser potent pain medication.
Least to most potent pain medications are defined
as: acetaminophen < NSAID < tramadol < opioids
(morphine, oxycodone, hydromorphone).
- Requesting a lesser dose of the same medication IF
ORDERED.
- Requesting a less intrusive route of administration
if both routes are prescribed by the provider (PO <
IV).
04/10/25 14:45
Code Status As Directed
Resuscitation Status: Full Code
04/13/25 11:00
DC Protocol for Telemetry ONCE
Abnormal Lab Results
04/10/25
09:02
RBC 3.81 L 10^6/uL
(4.70-6.10)
Hgb 11.1 L g/dL
(13.0-18.0)
Hct 32.6 L %
(39.0-52.0)
Chloride 110 H mmol/L
(98-107)
Carbon Dioxide 21 L mmol/L
(22-30)
Creatinine 1.7 H mg/dL
(0.7-1.3)
Glucose 188 H mg/dl
(70-99)
Total Bilirubin 2.0 H mg/dl
(0.2-1.3)
04/10/25 09:02
04/10/25 09:02
Vital Signs
Initial and Last Documented VS:
Initial Vital Signs
Temp Pulse Resp BP Pulse Ox
98.2 F 61 18 197/84 98
04/10/25 08:58 04/10/25 08:58 04/10/25 08:58 04/10/25 08:58 04/10/25 08:58
Last Documented Vital Signs
Temp Pulse Resp BP Pulse Ox
98.2 F 44 12 150/72 99
04/10/25 08:58 04/10/25 17:00 04/10/25 17:00 04/10/25 17:00 04/10/25 17:00
<Hemalatha Castro PA-C - Last Filed: 04/10/25 13:37>
MDM/Problems Addressed
Differential Diagnosis Includes:
see MDM
MDM/Problems Addressed:
Note:
CHIEF COMPLAINT(S)
The patient presents with swelling in both legs and increased shortness of breath over the past two weeks.
HISTORY OF PRESENT ILLNESS
The patient is a 59-year-old male with a history of a heart attack in 2021, presenting with worsening shortness of breath and bilateral leg swelling. The shortness of breath has been progressively worsening over the last two weeks, typically
occurring after minor exertion. The patient reports that both feet were swollen upon waking the day prior, describing the sensation as uncomfortable, with a sense of tightness rather than pain. he experienced a heart attack in 2021 and has since
been under the care of a restaurant expeditor.
The patient also reports having had several medications stopped recently due to elevated creatinine levels. Notably, his diabetes medication, with the exception of insulin, was stopped. he mentions that triamterene, which he had been taking for many
years, was also discontinued. The patients creatinine levels had previously been noted to increase to 3.6 upon admission and decreased to 2.6 approximately a week later. he does not experience chest pain with activity and denies recent long-distance
travel or any history of blood clots. Dietarily, he does not consume a high amount of salt.
The patient reports not weighinghimselfregularly due to an inconsistent gym routine. he attributes weight gain to the discontinued medications rather than fluid retention.
SOCIAL DETERMINANTS AFFECTING HEALTH
The patients weight gain is partly attributed to the cessation of certain medications. The patient does not consistently weigh herself due to an irregular gym routine.
PHYSICAL EXAM
GENERAL: Alert , in no apparent distress
EYE: pupils equal and reactive
NECK: Supple
ENT: o/p clr, mmm.
CARDIAC: Regular rate and rhythm .
LUNGS: Clear breath sounds bilaterally, no acute respiratory distress, no wheezes/rales/rhonchi
ABDOMEN: Soft, without focal tenderness, no r/g, no cvat, normal bowel sounds
NEUROLOGICAL: Alert and oriented, no focal neuro deficits
SKIN: Warm and dry, skin intact.
MUSCULOSKELETAL: No edema, well perfused. neg luis's sign
PSYCH: Normal and appropriate interaction.
- Nursing notes reviewed and vital signs reviewed.
PLAN
1. Perform a computed tomography scan of the lungs to rule out pulmonary embolism.
2. Perform ultrasounds of both legs to evaluate for deep vein thrombosis.
3. Consider hospital admission for diuresis with furosemide (Lasix) to manage fluid overload, with caution due to potential impacts on renal function.
4. Review kidney function tests to inform the management plan post-scans.
DIFFERENTIAL DIAGNOSIS
The Differential Diagnosis includes, in no particular order and is not limited to:
1. Congestive heart failure
2. Deep vein thrombosis
3. Pulmonary embolism
4. Diabetic nephropathy
5. Chronic kidney disease
6. Medication-induced fluid retention
7. Hypertension-induced edema
8. Cirrhosis with ascites
9. Nephrotic syndrome
10. Hypoalbuminemia
59 y/o M
h/o CAD
stent
here with BARR x 2 weeks with inc edema in LE
normally has no edema
starrted with RLE foot and now is both legs to knees
no cp
no o2 requirement
obese
ekg sinus mirtha
trop 0.019
bnp normal but could be falsely normal d/t body habitus
cr improved from previous 1.7
ct pe neg
pending US of legs
but will admit for CHF w/u , echo, lasix
<Hemalatha Castro PA-C - Last Filed: 04/10/25 13:37>
*Pulse Oximetry
SaO2: 100
Oxygen Mode of Delivery: Room air
Patient hypoxic: no (99)
*Critical Care Note
Total Time (30-74mins, 75-104mins- exclusive of procedures): Not Applicable
ED Attending Note
<Hemalatha Castro PA-C - Last Filed: 04/10/25 13:37>
-
Portions of this chart may have been created with voice recognition software.� Occasional wrong word or��sound alike� substitutions may have occurred due to the inherent limitations of voice recognition software.
<Lei Ruff MD - Last Filed: 04/10/25 18:05>
ED Attending Note
Patient seen and examined by attending physician: Yes
ED Attending Note:
Pt with history of hypertension and CRI, presents to ED secondary to shortness of breath with exertion over the past 2 weeks, along with leg swelling. Pt states that when he stops walking, shortness of breath does resolve over time. Denies fever.
Denies chest pain. Denies back pain. Pt states that his BP has been high over the same time period as well. After he was discharged home from recent hospitalization, number of his medications were adjusted, including increasing dose of amlodipine.
Physical Exam
General: no apparent distress, not acutely ill. afebrile. overweight
Head: nc/at. eomi
Neck: supple. normal range of motion
Heart: s1/s2 regular rate and rhythm
Lungs: no acute respiratory distress. clear bilaterally
Abdomen: normal bowel sounds. not tender.
Neuro: alert and oriented x 3. no focal neurological deficits
Skin: no rash
Psychiatric: well kept. interactive and cooperative
Extremities: LE nonpitting edema. no calf tenderness.
History and exam concerning for potential fluid overload, possible exacerbated by uncontrolled hypertension. Will admit for further evaluation and treatment
Discharge Plan
Departure
Patient Disposition: Admit
Date of Disposition: 04/10/25
Time of Disposition: 13:26
Admit to: Telemetry
Presentation/result/management discussed w/ accepting MD/DO: Hospitalist
Condition: Fair
Covid-19: Not Applicable
Discharge Problem:
Exertional dyspnea, Edema
Interventions
Interventions:
*General Assessment Last Done: 04/10/25 09:00
*Neglect/Abuse Screening Last Done: 04/10/25 09:00
*ED COVID-19 Vaccine History Last Done: 04/10/25 09:00
*ED Influenza Vaccine History Last Done: 04/10/25 09:[address]
[facility] Fall Risk Assessment Tool Last Done: 04/10/25 11:28
*Risk Screen - Suicide (C-SSRS) Last Done: 04/10/25 09:00
ED- Cardiac Assessment Last Done: 04/10/25 11:30
ED- Pulmonary Assessment Last Done: 04/10/25 11:30
--- NOTE | 2025-04-10 13:48 | HPS.HSE ---
Family Physician
-
Family Physician: Rafael Cortes
Chief Complaint
-
Dyspnea on exertion and bilateral lower extremity swelling
History of Present Illness
Patient is a 59-year-old gentleman with past medical history significant for insulin-dependent diabetes, diabetic neuropathy, hypertension, obstructive sleep apnea, coronary artery disease status post OK in 2021 , cardiac stenting, who presents to
the emergency department today secondary to worsening shortness of breath and bilateral lower extremity edema. He notes that his shortness of breath has been getting progressively worse over the past 2 weeks occurring with even minor exertion. He
has noted that both feet have been swollen with a sensation of skin tightness, worsening for 1 week. He had recent hospitalization March 01 through March 02 at [facility] secondary to worsening renal function diagnosed with acute
kidney injury versus progressive chronic kidney disease, for which they decreased his intake of Mounjaro mg/0.5 mL pen 7.5 weekly,held metformin 1000 mg BID, held Cozaar 100 mg daily, held HCTZ/triamterene 37.5-25 mg daily, and Jardiance 10 mg
daily at that time, and treated him with IV fluids, and he was deemed medically stable for discharge with a creatinine of 3.4, and his creatinine today is 1.7. Dr. Wagner is his Supervisor [employer]. He was having diarrhea prior to recent admission, but
this has stopped since being off diabetic meds. He denies CP, he has been having sensation of chills on and off, with working out at the gym and intermittently at home, no fevers, does not feel cold. No n/v, no dysuria, no bleeding/blood loss.
Medications received in the ED�Lasix 40 mg IV once
Medical History
Past Medical History
Past Medical History: Reports Asthma, CAD (Status post cardiac stents 2021), COPD, HTN, IDDM and Other (gout, SAE)
Past Surgical History: Reports Orthopedic
Social History
Tobacco: Non-smoker
Alcohol: Occasional
Drug: None
Family History
Family History: Not pertinent
Allergies / Home Medications
Allergies reflects when Allergies were last updated in [facility].
Home Medications with original date entered in [facility]
Allergy/Medication List:
gabapentin 600 mg tablet QHS
amlodipine 5 mg tablet PO DAILY
allopurinol 100 MG tablet
100 mg PO QPM
magnesium 200 MG tablet
500 mg PO DAILY
insulin glargine [Lantus Solostar U-100 Insulin] 300 UNITS/3 ML insulin pen
28 units SC HS
insulin aspart U-100 [Novolog FlexPen U-100 Insulin] 300 UNITS/3 ML insulin pen
0 units SC AC
Patient Comments:
<70 0
100-149 15
150-199 17
200-249 19
250-299 21
300-348 23
350 + 25 and call
atorvastatin 80 MG tablet
80 mg PO QPM
aspirin 81 MG tablet,chewable
81 mg PO DAILY
lidocaine 1 PATCH adhesive patch,medicated
1 patch topical DAILY ON FOR 12 HOURS, OFF FOR 12 HOURS
meclizine 25 mg Tablet
25 mg PO DAILY PRN (Reason: vertigo)
Baqsimi 3 mg/actuation Street,Non-Aerosol
3 mg INTRANASAL PRN PRN (Reason: hypoglycemia )
metoprolol succinate 50 MG tablet extended release 24 hr
25 mg PO HS
Review of Systems
-
A 12 point ROS was completed and negative except as noted: Yes
Physical Exam
Vital Signs
Vital Signs
Temp Pulse Resp BP Pulse Ox
98.2 F 53 14 149/102 99
04/10/25 08:58 04/10/25 12:30 04/10/25 12:30 04/10/25 12:00 04/10/25 12:30
Physical Exam
General: Well Developed, Well Nourished, Comfortable and Conversant
HEENT: NormoCephalic, Anicteric and Moist mucous membranes
Respiratory: Clear
Cardiac: S1/S2 and Regular Rhythm
GI: Soft, Non Tender, Non Distended and Other (obese)
Musculoskeletal: No Clubbing, No Cyanosis, Edema, Left Lower Extremity (1+ to knees) and Edema, Right Lower Extremity (1+ to knees)
Skin: Warm and Dry
Neuro: AO x 3 and No Motor Deficits
Psych: Calm
Laboratory Results
-
04/10/25 09:02
04/10/25 09:02
Laboratory Results
PT 14.1 Sec (11.4-14.6) 04/10/25 09:02
INR 1.08 04/10/25 09:02
Total Bilirubin 2.0 mg/dl (0.2-1.3) H 04/10/25 09:02
AST 18 U/L (17-59) 04/10/25 09:02
ALT 14 U/L (0-50) 04/10/25 09:02
Alkaline Phosphatase 110 U/L (38-126) 04/10/25 09:02
Troponin I 0.019 ng/ml 04/10/25 09:02
Data Reviewed
-
Diagnostic Radiology: Image Personally Visualized and interpreted and Report Reviewed by me (Chest x-ray with no acute cardiopulmonary abnormalities)
Medical Tests (Nuc Med, Echo, EKG etc): Image Personally Visualized and interpreted (Sinus bradycardia with sinus arrhythmia, rate 57, nonspecific ST and T wave abnormalities) and Report Reviewed by me
Impression/Plan
-
IMPRESSION:Patient is a 59-year-old gentleman with past medical history significant for insulin-dependent diabetes, diabetic neuropathy, hypertension, obstructive sleep apnea, coronary artery disease status post OK in 2021 , cardiac stenting, who
presents to the emergency department today secondary to worsening shortness of breath and bilateral lower extremity edema. He notes that his shortness of breath has been getting progressively worse over the past 2 weeks occurring with even minor
exertion. He has noted that both feet have been swollen with a sensation of skin tightness. He had recent hospitalization March 01 through March 02 at [facility] secondary to worsening renal function diagnosed with acute kidney
injury versus progressive chronic kidney disease, for which they decreased his intake of Mounjaro mg/0.5 mL pen 7.5 weekly,held metformin 1000 mg BID, held Cozaar 100 mg daily, held HCTZ/triamterene 37.5-25 mg daily, and Jardiance 10 mg daily at
that time, and treated him with IV fluids, and he was deemed medically stable for discharge with a creatinine of 3.4, and his creatinine today is 1.7.
Medications received in the ED�Lasix 40 mg IV once
#Hypertensive urgency, no evidence for acute end-organ damage
-recent start on Amlodipine and increased to 10 mg daily for 1 week, may be the cause of LE edema versus acute CHFpEF or right-sided heart failure.
-Chest CT showed no filling defect
-Cardiology and Nephrology consultation appreciated
-Chest x-ray NAD
-Echo 07/29/23 with EF 55-60%, RV top normal size, normal LV function, no valvular dx, evidence for interatrial septum hyermobile w right to left shunt by agitated saline contrast injection suggestive of small PFO or ASD.
-Repeat Echo today pending
-hold amlodipine
-tele monitoring
- Continue IV Lasix 20 mg IV twice a day with second dose tonight
- Hydralazine 5 mg IV every 6 hours as needed systolic blood pressure greater than 180 and diastolic blood pressure greater than 110
- Will hold amlodipine for now,
-continue metoprolol 25 extended release nightly, monitor heart rate on telemetry as patient had heart rate in the 40s outpatient, consider changing metoprolol to twice daily dosing at 12.5 mg, and discussed with cardiology nephrology adding back
the ARB, or other combination medications to aid in blood pressure management.
# Mild nodular enlargement of the left thyroid lobe noted on CT imaging
-Check TSH
-Patient will need an outpatient thyroid ultrasound, to be scheduled the time of hospital discharge, discussed this with the patient.
-Ultrasound of the lower extremities pending
-Check hemoglobin A1c
# Hyperbilirubinemia, normal LFTs, asymptomatic
-Cholelithiasis seen on CT imaging, with rim calcified gallstone in the gallbladder lumen.
-Total bilirubin 2.0
-Repeat CMP in the morning
# Obstructive sleep apnea will be
- Repeat echocardiogram
- Continue CPAP nightly
# Insulin-dependent diabetes
- Continue Lantus 28 units nightly
- Continue sliding scale insulin
- Monitor glucose
- Discuss restarting Mounjaro outpatient at the low dose with the aid of his outpatient rubber mixer
# Diabetic neuropathy
- Continue gabapentin
# DVT prophylaxis-Lovenox
Full code
[2025-04-10] MEDS: LASIX 40 MG IV (14:00)
--- NOTE | 2025-04-10 15:10 | W.CON.NEPH ---
Consultation
-
Date/Time Consultation Requested: 04/10/2025 3 PM
Date/Time Consultation Performed: 04/10/2025 3 PM
Requesting Provider: Dr. Matthews
Performing Provider: Dr. Bryant
Reason for Consultation: KAVIN
Medical History
-
Chief Complaint: Shortness of breath
History of Present Illness:
This is a 59-year-old gentleman who is seen Dr. Mosquera in our office for CKD 3A. His baseline creatinine is approximately 1.0. He had inexplicable episode of KAVIN in February where he had recent up to 3.6. Multiple medications were
discontinued including metformin, Mounjaro, Jardiance, losartan, Dyazide. His creatinine began to improve down to 2.6 in January and 1.7 more recently. However, he has noticed his blood pressures have been running high and his amlodipine was
doubled to 10 mg daily not long ago last week. He has also noticed progressive lower extreme edema as well as progressive shortness of breath to the point where he is dyspneic on minimal exertion. Because of this he come to emergency room for
evaluation. He was given a dose of IV Lasix with significant improvement of both his shortness of breath as well as his edema already. He had a CT with PE protocol which was negative for PE and lower extremity Dopplers were negative for DVT.
Creatinine was noted to be at 1.7 we are asked to assist with management of his renal issues.
Past Medical History
Hypertension
gout
CKD 3 A
Diabetes mellitus type 2
Obesity
Coronary artery disease with stent
MT
GERD
Sleep apnea
M�ni�re's
Social History
Tobacco: Non-Smoker
Alcohol: None
Family History
Family History: Not Pertinent
Allergies / Home Medications
Allergy/AdvReac Type Severity Reaction Status Date / Time
No Known Allergies Allergy Verified 04/10/25 09:00
�Medication �Instructions �Recorded �Confirmed �Type
allopurinol 100 mg tablet 100 mg PO QPM Gout 09/06/18 03/02/25 History
losartan 100 mg tablet (Cozaar) 100 mg PO HS Blood pressure 09/06/18 03/02/25 History
Held on 03/02/25.
Instructions: On hold due to
Kidney Dysfunction. Follow
up with primary care provider
or Nephrology to determine
when safe to resume.
magnesium 200 mg tablet 500 mg PO DAILY Supplement 09/06/18 03/02/25 History
metformin 1,000 mg tablet 1,000 mg PO BID Diabetes 09/06/18 03/02/25 History
Held on 03/02/25.
Instructions: On hold due to
Kidney Dysfunction. Follow
up with primary care provider
or Nephrology to determine
when safe to resume.
insulin aspart U-100 100 unit/mL 0 units SC AC Diabetes 06/01/21 03/02/25 History
(3 mL) subcutaneous pen (Novolog
FlexPen U-100 Insulin aspart)
insulin glargine 100 unit/mL (3 28 units SC HS Diabetes 06/01/21 03/02/25 History
mL) subcutaneous pen (Lantus
Solostar U-100 Insulin)
aspirin 81 mg chewable tablet 81 mg PO DAILY 06/04/21 03/02/25 Rx
atorvastatin 80 mg tablet 80 mg PO QPM Heart 06/04/21 03/02/25 Rx
disease/condition #30 tabs
lidocaine 5 % topical patch 1 patch topical DAILY Pain #30 06/04/21 03/02/25 Rx
patches
empagliflozin 10 mg tablet 10 mg PO QPM Diabetes 07/29/23 03/02/25 History
(Jardiance)
Held on 03/02/25.
Instructions: On hold due to
Kidney Dysfunction. Follow
up with primary care provider
or Nephrology to determine
when safe to resume.
glucagon 3 mg/actuation nasal 3 mg intranasal PRN PRN 07/29/23 03/02/25 History
spray (Baqsimi) hypoglycemia
meclizine 25 mg tablet 25 mg PO DAILY PRN vertigo 07/29/23 03/02/25 History
metoprolol succinate 50 mg 25 mg PO HS Heart disease/condition 07/29/23 03/02/25 History
tablet,extended release 24 hr
tirzepatide 7.5 mg/0.5 mL 7.5 mg SC QWEEK 07/29/23 03/02/25 History
subcutaneous pen injector
(Mounjaro)
Held on 03/02/25.
Instructions: On hold due to
Kidney Dysfunction. Follow
up with primary care
provider, Nephrology, or
Senior Reservoir Engineer to determine
when safe to resume.
triamterene 37.5 1 tab PO BID 07/29/23 03/02/25 History
mg-hydrochlorothiazide 25 mg tablet
Held on 03/02/25.
Instructions: On hold due to
Kidney Dysfunction. Follow
up with primary care provider
or Nephrology to determine
when safe to resume.
amlodipine 5 mg tablet 5 mg PO DAILY #30 tabs 03/02/25 Rx
gabapentin 600 mg tablet 600 mg PO HS #30 tabs 03/02/25 Rx
Physical Exam
Vital Signs
Vital Signs
Temp Pulse Resp BP Pulse Ox
98.2 F 65 15 175/78 99
04/10/25 08:58 04/10/25 14:30 04/10/25 14:30 04/10/25 14:50 04/10/25 14:30
Lab Results
WBC 9.3 10^3/uL (4.8-10.8) 04/10/25 09:02
RBC 3.81 10^6/uL (4.70-6.10) L 04/10/25 09:02
Hgb 11.1 g/dL (13.0-18.0) L 04/10/25 09:02
Hct 32.6 % (39.0-52.0) L 04/10/25 09:02
Plt Count 203 10^3/uL (130-400) 04/10/25 09:02
Sodium 138 mmol/L (135-145) 04/10/25 09:02
Potassium 4.2 mmol/L (3.5-5.1) 04/10/25 09:02
Chloride 110 mmol/L (98-107) H 04/10/25 09:02
Carbon Dioxide 21 mmol/L (22-30) L 04/10/25 09:02
BUN 18 mg/dl (9-20) 04/10/25 09:02
Creatinine 1.7 mg/dL (0.7-1.3) H 04/10/25 09:02
eGFR 46.44 04/10/25 09:02
Glucose 188 mg/dl (70-99) H 04/10/25 09:02
Calcium 9.1 mg/dl (8.4-10.2) 04/10/25 09:02
Nap-Q-Lnmoselsaie Pept 835 pg/ml 04/10/25 09:02
Albumin 4.1 g/dl (3.5-5.0) 04/10/25 09:02
Laboratory Tests
03/02/25
06:23
Creatinine 3.4 H
03/01/2025 creatinine 3.46
12/15/2024 creatinine 1.72
07/23/2023 creatinine 0.98
07/12/2024 creatinine 1.31
04/23/2024 creatinine 1.27
Data Reviewed
-
Radiology: Image Personally Visualized and interpreted (Chest x-ray 04/10/2025 by reading no acute disease)
CT Scan: Report Reviewed by me (Chest CT PE protocol 04/10/2025 negative for PE) and Other (Renal ultrasound 03/01/2025 right kidney 11 cm left kidney 12.1 cm no hydronephrosis or mass)
Ultrasound: Report Reviewed by me (Lower extremity duplex 04/10/2025 no DVT)
Labs: Labs Reviewed by me
Old Records: Reviewed
Assessment/Plan
-
Impression
KAVIN, improving over time
Shortness of breath, edema
Hypertension
Diabetes mellitus type 2
M�ni�re's
CAD with history of stent
Plan
Significant improvement with 1 dose of Lasix
Would plan on a second dose tomorrow
I see no issue with restarting Mounjaro as an outpatient he will discuss this with endocrinology
We discussed the possibility of contrast nephropathy given his exposure for PE CT
Follow BMP
If creatinine remains stable or improved, I would restart Dyazide as an outpatient as he is starting to have more symptoms from his M�ni�re's. This will also help his blood pressures
Check urine studies
Metoprolol should be 12.5 mg twice daily
--- NOTE | 2025-04-10 15:50 | CM ---
Chart reviewed and spoke with pt at ED bedside
OBS form reviewed with pt and left with him as requested
lives alone in a duplex, 0 shanae, flight of steps to bed/bath
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
DME: cane, CPAP
PCP: Dr. Cortes
Pharmacy: [facility]
no hx of VN nor SNF
DCP is to go home
He can drive himself home since he drove here
no needs anticipated at this time
CM will continue to follow up for dcp needs
[2025-04-10 16:28] LABS: Urine Character Clear (Clear)
[2025-04-10] MEDS: LIPITOR 80 MG PO (18:54)
[2025-04-10] MEDS: ZYLOPRIM 100 MG PO (18:54)
[2025-04-10] MEDS: LOVENOX 40 MG SC (18:54)
[2025-04-10 18:59] LABS: Glucose - Point of Care 181 mg/dl (70-99)
[2025-04-10 19:02] LABS: Magnesium 1.8 mg/dl (1.6-2.3)
[2025-04-10 19:39] LABS: TSH 4.25 uIU/ml (0.47-4.68)
[2025-04-10] MEDS: NOVOLOG FLEXPEN-LOW RESISTANCE 1 UNITS SC (20:14)
[2025-04-10] MEDS: LOPRESSOR 12.5 MG PO (21:22)
[2025-04-10] MEDS: NEURONTIN 600 MG PO (21:29)
[2025-04-10 21:34] LABS: Glucose - Point of Care 166 mg/dl (70-99)
[2025-04-10] MEDS: LANTUS 0.28 UNITS SC (21:34)
[2025-04-11 03:26] VITALS: BP 149/74
[2025-04-11 07:23] LABS: Glucose - Point of Care 171 mg/dl (70-99)
[2025-04-11 07:58] LABS: Hematocrit 32.2 % (39.0-52.0); Hemoglobin 11.0 g/dL (13.0-18.0); Mean Corp Hgb Conc. 34.2 g/dL (33.0-37.0); Mean Corpuscular Volume 87.3 fL (80.0-94.0); Platelet Count 191 10^3/uL (130-400); Red Cell Dist. Width 14.0 % (11.5-14.5)
[2025-04-11] MEDS: NOVOLOG FLEXPEN-LOW RESISTANCE 1 UNITS SC ×2 (08:18→12:43)
[2025-04-11] MEDS: LASIX 20 MG IV (08:19)
[2025-04-11 08:25] VITALS: BP 135/73
[2025-04-11] MEDS: LOPRESSOR PO (08:31)
[2025-04-11 09:21] LABS: ALT (SGPT) 14 U/L (0-50); AST (SGOT) 18 U/L (17-59); Albumin 4.1 g/dl (3.5-5.0); Alkaline Phosphatase 110 U/L (38-126); Blood Urea Nitrogen 19 mg/dl (9-20); Calcium 9.5 mg/dl (8.4-10.2); Carbon Dioxide 26 mmol/L (22-30); Chloride 105 mmol/L (98-107); Estimated Creatinine Clearance 66 ml/min; Glucose 152 mg/dl (70-99); HDL Cholesterol 32 mg/dl; LDL Cholesterol, Calculated 62 mg/dl; Potassium 4.0 mmol/L (3.5-5.1); Sodium 137 mmol/L (135-145); Total Protein 7.2 g/dl (6.3-8.2); Very Low Density Lipoprotein 36 mg/dl (0-30); eGFR 43.36
--- NOTE | 2025-04-11 10:06 | W.PN.HOSP.TC ---
Today's Communication/Plan
-
Discharge home today
Start Lasix 20 mg 1 tablet by mouth daily
Switch metoprolol 25 mg extended release to 12.5 mg twice daily
Advised to follow-up outpatient with cardiology, nephrology and family doctor
Outpatient thyroid ultrasound with family doctor
Assessment / Plan
Assessment / Plan
59-year-old gentleman with past medical history significant for insulin-dependent diabetes, diabetic neuropathy, hypertension, obstructive sleep apnea, coronary artery disease status post [place] in 2021 , cardiac stenting, who presentedwith concerns of
worsening shortness of breath and bilateral lower extremity edema.
# Dyspnea on exertion with bilateral lower extremity edema
? Acute HFpEF
-recent started on Amlodipine 10 mg daily for 1 week prior to arrival, may be the cause of LE edema ; hold
-Chest CT showed no filling defect, no PE
-Cardiology and Nephrology consultation appreciated
-Chest x-ray NAD
-Ultrasound of the lower extremities pending without any DVT
-hemoglobin A1c 5.8
-updated ECHO : SUMMARY
1. Left ventricular cavity size is 6.10 cm which is mildly increased with mild left ventricular hypertrophy. Normal left ventricular systolic function with estimated left ventricle ejection fraction of 55%.
2. Right ventricular size and systolic function are within normal limits.
3. Trace mitral and tricuspid valve regurgitation.
4. No pericardial effusion.
5. No significant changes when compared to prior echocardiogram from May,.
- Significant improvement in symptoms after IV Lasix ; will continue p.o. Lasix 20 mg daily per nephrology recommendations
-Patient on home metoprolol 25 extended release, there were multiple episodes of bradycardia on telemetry; switched to metoprolol 12.5 mg twice daily; advised to follow-up with outpatient track liner operator
# Mild nodular enlargement of the left thyroid lobe noted on CT imaging
- TSH within normal limit
-Patient will need an outpatient thyroid ultrasound, to be scheduled the time of hospital discharge, discussed this with the patient.; Patient
# Hyperbilirubinemia, normal LFTs, asymptomatic
-Cholelithiasis seen on CT imaging, with rim calcified gallstone in the gallbladder lumen.
# Obstructive sleep apnea will be
- Continue CPAP nightly
# Insulin-dependent diabetes
- Continue Lantus 28 units nightly
- Continue sliding scale insulin while in the hospital
- Monitor glucose
- Discuss restarting Anais outpatient at the low dose with the aid of his outpatient survey analyst
# Diabetic neuropathy
- Continue gabapentin
# History of M�ni�re's disease
# DVT prophylaxis-Lovenox
Full code
Anticipated Discharge: Today
Subjective/Interval History
-
Date of Service: April 11, 2025
AFVSS. Patient states that he is feeling much better after he received IV Lasix
Objective Data
-
Labs:
Laboratory Results
04/11/25
07:38
WBC 8.0
Hgb 11.0 L
Hct 32.2 L
Plt Count 191
Sodium 137
Potassium 4.0
Chloride 105
Carbon Dioxide 26
BUN 19
Creatinine 1.8 H
Glucose 152 H
Calcium 9.5
Total Bilirubin 2.9 H
AST 18
ALT 14
Alkaline Phosphatase 110
Vital Signs:
Vital Signs
Temp Pulse Resp BP Pulse Ox
97.7 F 49 18 157/74 98
04/11/25 11:30 04/11/25 11:30 04/11/25 11:30 04/11/25 11:30 04/11/25 12:22
I&O
04/10/25 04/11/25 04/12/25
06:59 06:59 06:59
Intake Total 240 / 240
Output Total 2675 / 2675
Balance -2435 / -2435
Review of Systems
-
History Source: Patient
All other systems: Reviewed and negative
Physical Exam
-
General: Obese
HEENT: Normocephalic
Respiratory: Clear to Auscultation and Non Labored Respirations
Cardiac: Regular Rhythm and S1/S2
GI: Soft and Nontender
Neuro: Awake, Alert and Oriented
Psych: Calm
Data Reviewed
-
CT Scan: Report Reviewed by me, Discussed with Physician and Discussed with Patient
Labs: Labs Reviewed by me, Discussed with Physician and Discussed with Patient
--- NOTE | 2025-04-11 10:29 | CON.CAR ---
Addendum entered and electronically signed by Liam Wagner MD 04/11/25 12:57:
I saw and examined the patient.
The TRUCK DISPATCHER or PA's note was reviewed and I agree with the note.
Comment: General: Well developed, well nourished in NAD.
Neck: Supple, no JVD, HJR, carotids +2 B/L, no bruits bilaterally.
Heart: Non displaced PMI, RRR, no murmurs, No S3, S4, no rubs.
Lungs: Scattered rhonchi
Extremities: No clubbing, cyanosis or edema bilaterally.
Neuro: Grossly nonfocal, awake, alert and oriented x3.
Daniel has a history of CAD status post RCA PCI 2021, CVA, gout, M�ni�re's disease, spinal stenosis, reflux, sleep apnea, hypertension, hyperlipidemia, obesity. He presented with dyspnea on exertion lower extremity edema. He is felt to be in CHF
and feels better after IV Lasix. Creatinine has increased slightly from 1.7 on admission to 1.8. Echocardiogram with normal LV function.
He is stable for discharge to home from cardiology standpoint. Await nephrology regarding diuretics. Thiazide as an outpatient has been discussed in the past. Discussed with primary service and nephrology.
Original Note:
Consultation
Consultation Request
Date/Time Consultation Requested: 04/11/2025
Date/Time Consultation Performed: 04/11/2025
Requesting Provider: Dr. Arzola
Performing Provider: Bozena Hoang PA-C for Dr. Wagner
Reason for Consultation: CHF
Medical History
-
History of Present Illness:
HPI: Daniel is a 59 year old male with PMH of CAD s/p RCA PCI in 2021, CVA, gout, Meinere's disease, spinal stenosis, GERD, SAE, HLD, HTN, who presented to [facility] ER with BARR and LE edema. He states about two weeks ago he had worsening shortness of
breath. He states this correlates with when he was started on amlodipine. Also over the past week has had worsening LE edema/tightness in his legs/feet. He had recent hospitalization at [facility] 02/2025 with KAVIN and his usual BP meds were stopped and he
was started on amlodipine. Creat on arrival this admission was 1.7. Nephrology saw and stopped amlodipine and started IV lasix 20mg BID. Weight improving and he notes improvement in his breathing overnight. Walked 2 laps around the unit and reports
breathing felt near baseline. Edema also improving.
PMH:
CAD
s/p PCI RCA x1 GERA 06/01/2021
HTN
DM2
h/o CVA
small PFO by SCOTT 07/2023
Gout
M�ni�re's disease
Spinal stenosis
GERD
Fatty liver
Morbid obesity
SAE- declined CPAP
Hyperlipidemia
Hypertriglyceridemia
Past Medical History
Past Medical History: Other (In HPI)
Past Surgical History: Cardiac (RCA PCI 05/2021)
Social History
Tobacco: Non-Smoker
Alcohol: Occasional
Drug: None
Personal: Single
Living: Alone
Family History
Family History: Hypertension
Allergies / Home Medications
Allergy/AdvReac Type Severity Reaction Status Date / Time
No Known Allergies Allergy Verified 04/10/25 09:00
�Medication �Instructions �Recorded �Confirmed �Type
allopurinol 100 mg tablet 100 mg PO QPM Gout 09/06/18 03/02/25 History
losartan 100 mg tablet (Cozaar) 100 mg PO HS Blood pressure 09/06/18 03/02/25 History
Held on 03/02/25.
Instructions: On hold due to
Kidney Dysfunction. Follow
up with primary care provider
or Nephrology to determine
when safe to resume.
magnesium 200 mg tablet 500 mg PO DAILY Supplement 09/06/18 03/02/25 History
metformin 1,000 mg tablet 1,000 mg PO BID Diabetes 09/06/18 03/02/25 History
Held on 03/02/25.
Instructions: On hold due to
Kidney Dysfunction. Follow
up with primary care provider
or Nephrology to determine
when safe to resume.
insulin aspart U-100 100 unit/mL 0 units SC AC Diabetes 06/01/21 03/02/25 History
(3 mL) subcutaneous pen (Novolog
FlexPen U-100 Insulin aspart)
insulin glargine 100 unit/mL (3 28 units SC HS Diabetes 06/01/21 03/02/25 History
mL) subcutaneous pen (Lantus
Solostar U-100 Insulin)
aspirin 81 mg chewable tablet 81 mg PO DAILY 06/04/21 03/02/25 Rx
atorvastatin 80 mg tablet 80 mg PO QPM Heart 06/04/21 03/02/25 Rx
disease/condition #30 tabs
lidocaine 5 % topical patch 1 patch topical DAILY Pain #30 06/04/21 03/02/25 Rx
patches
empagliflozin 10 mg tablet 10 mg PO QPM Diabetes 07/29/23 03/02/25 History
(Jardiance)
Held on 03/02/25.
Instructions: On hold due to
Kidney Dysfunction. Follow
up with primary care provider
or Nephrology to determine
when safe to resume.
glucagon 3 mg/actuation nasal 3 mg intranasal PRN PRN 07/29/23 03/02/25 History
spray (Baqsimi) hypoglycemia
meclizine 25 mg tablet 25 mg PO DAILY PRN vertigo 07/29/23 03/02/25 History
metoprolol succinate 50 mg 25 mg PO HS Heart disease/condition 07/29/23 03/02/25 History
tablet,extended release 24 hr
tirzepatide 7.5 mg/0.5 mL 7.5 mg SC QWEEK Diabetes 07/29/23 03/02/25 History
subcutaneous pen injector
(Mounjaro)
Held on 03/02/25.
Instructions: On hold due to
Kidney Dysfunction. Follow
up with primary care
provider, Nephrology, or
Tangled Yarn Worker to determine
when safe to resume.
triamterene 37.5 1 tab PO BID Fluid 07/29/23 03/02/25 History
mg-hydrochlorothiazide 25 mg tablet Retention/Swelling
Held on 03/02/25.
Instructions: On hold due to
Kidney Dysfunction. Follow
up with primary care provider
or Nephrology to determine
when safe to resume.
gabapentin 600 mg tablet 600 mg PO HS #30 tabs 03/02/25 Rx
amlodipine 5 mg tablet 5 mg PO DAILY Blood Pressure 04/11/25 History
Review of Systems
-
History Source: Patient
All other systems: Negative unless noted
Physical Exam
Vital Signs
Temp Pulse Resp BP Pulse Ox
97.9 F 46 20 135/73 98
04/11/25 08:25 04/11/25 08:25 04/11/25 08:25 04/11/25 08:25 04/11/25 08:25
Lab Results
04/11/25 07:38
04/11/25 07:38
Troponin I 0.019 ng/ml 04/10/25 09:02
Ule-S-Bjwjoajxgqn Pept 835 pg/ml 04/10/25 09:02
Physical Exam
General: Well Developed, Well Nourished and No Apparent Distress
HEENT: Normocephalic, Anicteric and Moist Mucous Membranes
Respiratory: Clear and Non Labored Respirations
Cardiac: S1/S2 and Regular Rhythm
Musculoskeletal: No Clubbing, No Cyanosis and Edema
Skin: Warm and Dry
Neuro: AO x 3 and Nonfocal/Grossly Intact
Psych: Calm
Impression / Plan
-
PCP: Dr. Cortes
Director Digital: Dr. Wagner
Impression:
Presented with BARR, LE edema
Acute HFpEF
CAD
s/p PCI RCA x1 GERA 06/01/2021
HTN
DM2
h/o CVA
small PFO by [facility]OTT 07/2023
Gout
M�ni�re's disease
Spinal stenosis
GERD
Fatty liver
Morbid obesity
SAE- declined CPAP
Hyperlipidemia
Hypertriglyceridemia
Echo 06/01/2021: EF 60-65%, very mild basal inferior hypokinesis, mild conc LVH, no significant valve disease
SCOTT 07/29/2023: EF 55 to 60%, trace MR, trace TR, interatrial septum is hypermobile with evidence of [id number]-tqrd shunt by agitated saline contrast injection suggestive of small PFO or ASD
Echo 04/11/2025: Study pending
Plan:
-Presented with BARR and increased LE edema for 1 to 2 weeks.
-Agree with stopping amlodipine. BP overall stable on Lopressor 12.5 mg twice daily.
-Diuresing with IV Lasix 20 mg twice daily per nephrology. Weight down 8 pounds overnight if accurate.
-Negative 2.5 L on I&O's. Continue to follow.
-Creatinine 1.8 04/11. Continue to follow.
-Check echo. Prior SCOTT 07/2023 with preserved EF and no significant valvular disease.
-EKG reviewed, sinus bradycardia, no acute ischemic changes noted.
-Breathing improving with diuresis. Not requiring supplemental O2. CT scan negative for PE.
-LE US negative for DVT. Reports legs feel less tight today.
-Continue aspirin 81 mg daily given h/o CAD with prior RCA stenting in 2021.
-LDL 62. Continue atorvastatin 80 mg daily.
-HgbA1c pending
HPI: Daniel is a 59 year old male with PMH of CAD s/p RCA PCI in 2021, CVA, gout, Meinere's disease, spinal stenosis, GERD, SAE, HLD, HTN, who presented to [facility] ER with BARR and LE edema. He states about two weeks ago he had worsening shortness of
breath. He states this correlates with when he was started on amlodipine. Also over the past week has had worsening LE edema/tightness in his legs/feet. He had recent hospitalization at [facility] 02/2025 with KAVIN and his usual BP meds were stopped and he
was started on amlodipine. Creat on arrival this admission was 1.7. Nephrology saw and stopped amlodipine and started IV lasix 20mg BID. Weight improving and he notes improvement in his breathing overnight. Walked 2 laps around the unit and reports
breathing felt near baseline. Edema also improving.
Data Reviewed
-
EKG: Tracing Personally Visualized and interpreted
Radiology: Report Reviewed by me
CT Scan: Report Reviewed by me
Ultrasound: Report Reviewed by me
Labs: Labs Reviewed by me
Old Records: Reviewed
[2025-04-11] MEDS: LOW STRENGTH ASPIRIN 81 MG PO (10:43)
--- NOTE | 2025-04-11 10:54 | CM ---
CM consulted for advanced directive
Met w/ patient bedside, declined needing advanced directive at this time
Plan: Home, no needs
[2025-04-11 11:07] LABS: Glycohemoglobin (HgbA1c) 5.8 % (4.0-5.9)
[2025-04-11 11:30] VITALS: BP 157/74
[2025-04-11 11:57] LABS: Glucose - Point of Care 157 mg/dl (70-99)
--- NOTE | 2025-04-11 13:37 | W.PN.NEPH.PH ---
Today's Communication / Plan
-
Discharge on Lasix 20 daily and continue Dyazide
Assessment/Plan
-
Impression
KAVIN, improving over time
Shortness of breath, edema
Hypertension
Diabetes mellitus type 2
M�ni�re's
CAD with history of stent
Plan
Follow BMP
Okay to restart Dyazide
Suggest discharging him on Lasix 20 mg daily and he will follow-up with me on April 24
Discussed the sodium restriction
He has blood work ordered from my office to be done prior to next visit
Cardiology noted
Discussed with hospital medicine as to plan
-
-
Date of Service: April 11, 2025
CC / HPI / ROS
-
No chest pain or shortness of breath edema has improved
No overnight events
10 point review systems obtained all is negative
Labs
-
Labs:
WBC 8.0 10^3/uL (4.8-10.8) 04/11/25 07:38
RBC 3.69 10^6/uL (4.70-6.10) L 04/11/25 07:38
Hgb 11.0 g/dL (13.0-18.0) L 04/11/25 07:38
Hct 32.2 % (39.0-52.0) L 04/11/25 07:38
Plt Count 191 10^3/uL (130-400) 04/11/25 07:38
Sodium 137 mmol/L (135-145) 04/11/25 07:38
Potassium 4.0 mmol/L (3.5-5.1) 04/11/25 07:38
Chloride 105 mmol/L (98-107) 04/11/25 07:38
Carbon Dioxide 26 mmol/L (22-30) 04/11/25 07:38
BUN 19 mg/dl (9-20) 04/11/25 07:38
Creatinine 1.8 mg/dL (0.7-1.3) H 04/11/25 07:38
eGFR 43.36 04/11/25 07:38
Glucose 152 mg/dl (70-99) H 04/11/25 07:38
Calcium 9.5 mg/dl (8.4-10.2) 04/11/25 07:38
Pbp-H-Buzwyqktrrw Pept 835 pg/ml 04/10/25 09:02
Albumin 4.1 g/dl (3.5-5.0) 04/11/25 07:38
Physical Exam
-
Vital Signs:
Vital Signs
Temp Pulse Resp BP Pulse Ox
97.7 F 49 18 157/74 98
04/11/25 11:30 04/11/25 11:30 04/11/25 11:30 04/11/25 11:30 04/11/25 12:22
Respiratory:: Bilateral: CTA
Lung Excursion:: Normal
Abdomen:: Soft
Bowel Sounds:: Normal
Extremity Edema:: None: Bilateral:
--- NOTE | 2025-04-11 15:02 | W.DCSUMMARY ---
Discharge Summary
Discharge Data
Date of Admission: 04/10/25
Date of Discharge: 04/11/25
-
Pending Results: No
Hospital Course
Discharging Physician : Porfirio Savage Md ; Aldair Arzola MD
Disposition : Home
Primary care physician : Dr. Cortes
Principal Discharge diagnosis : Dyspnea on exertion, bilateral lower extremity edema
Chronic Discharge diagnosis : Insulin-dependent diabetes, diabetic neuropathy, hypertension, SAE, coronary artery disease, s/p [place], cardiac stents
Hospital Course : 59-year-old male with history of CKD 3A presented in the emergency department with concerns of dyspnea on exertion and bilateral lower extremity edema.
Initial evaluation which included chest CT was negative for PE, chest x-ray was negative for any acute cardiopulmonary disease, peripheral vascular ultrasound was negative for any DVTs.
Lab work showed hemoglobin of 11.1. Chemistry with creatinine of 1.7 and there was some elevation of total bilirubin to 2.0. TSH was also checked which came back normal. Next day complete metabolic panel was repeated and the creatinine was 1.8
likely due to the contrast which was given for the CT chest.
He was started on IV Lasix and nephrology was consulted. He felt significant improvement after IV Lasix. There was improvement in his bilateral lower extremity edema as well
His amlodipine was discontinued.
At the time of discharge he was recommended to start Lasix 20 mg p.o. daily. He was also advised to resume Dyazide which was discontinued during the previous admission.
He has a scheduled appointment with senior production planner for April. He was advised to follow-up.
Cardiology service was also consulted and he underwent for an updated echocardiogram which came back unremarkable and he was deemed stable for discharge from cardiac standpoint.
His metoprolol 25 mg daily was switched to 12.5 mg twice daily scripts for metoprolol 25 as well as Lasix were sent to the pharmacy.
He was also advised to follow-up outpatient with family doctor for routine thyroid ultrasound.
Weight loss reduction strategies were discussed with the patient. He was advised to follow-up with the weight loss specialist. Information provided at the time of discharge.
Important imaging findings : Chest x-ray
No acute cardiopulmonary abnormality
Peripheral vascular ultrasound bilateral lower extremities
No sonographic evidence of lower extremity venous thrombus
CT Chest PE Study
No CTA evidence for an acute pulmonary thromboembolism within the limitations of respiratory motion artifact.
Cholelithiasis.
Mild nodular enlargement of the left lobe of the thyroid gland. A follow-up thyroid ultrasound could be performed on a routine basis.
Procedure findings : TRANSTHORACIC ECHOCARDIOGRAM REPORT
SUMMARY
1. Left ventricular cavity size is 6.10 cm which is mildly increased with mild left ventricular hypertrophy. Normal left ventricular systolic function with estimated left ventricle ejection fraction of 55%.
2. Right ventricular size and systolic function are within normal limits.
3. Trace mitral and tricuspid valve regurgitation.
4. No pericardial effusion.
5. No significant changes when compared to prior echocardiogram from May,.
Discharge Plan
-
Patient Disposition: Home (Routine Discharge)
Discharge Diagnosis/Procedures: Dyspnea on exertion, bilateral lower extremity edema
Condition: Good
Diet: Low Sodium
Activity: As tolerated
Driving Restrictions: As prior to admission
Blood Work: BMP with nephrology
Referrals:
Peewee Mosquera DO [Active, Nephrology] - in one to two weeks
Referral Note: Appt scheduled
Rafael Cortes DO [Family Provider, Family Practice] - in less than 1 week
Sloane Styles MD [Active, Internal Medicine] - in two to three weeks
Additional Discharge Medication Instructions: Please take furosemide 20 mg 1 tablet by mouth daily ; follow-up with nephrology on your scheduled appointment in April for additional recommendation
Take metoprolol 12.5 mg 1 tablet by mouth twice daily
You may continue Dyazide which was previously stopped.
Please stop amlodipine 10 mg tablet
Discontinue the metoprolol 25 mg tablet
Please follow-up outpatient with your family doctor, senior production planner as well as supervisor newspaper deliveries.
Follow-up with your family doctor for outpatient thyroid ultrasound as the CT imaging in the hospital showed mild nodular enlargement of the left thyroid lobe.
You may follow up with Dr. Styles to help with weight loss
Prescriptions:
New
furosemide [Lasix] 20 mg tablet
20 mg PO DAILY Qty: 30 0RF
metoprolol tartrate 25 mg Tablet
12.5 mg PO BID Qty: 60 0RF
Continued
allopurinol 100 MG tablet
100 mg PO QPM
magnesium 200 MG tablet
500 mg PO DAILY
atorvastatin 80 MG tablet
80 mg PO QPM Qty: 30 11RF
gabapentin 600 mg tablet
600 mg PO HS Qty: 30 0RF
aspirin 81 mg Tablet,Delayed Release (Dr/Ec)
81 mg PO DAILY
lidocaine 5 % adhesive patch,medicated
1 patch transdermal DAILY
cyanocobalamin (vitamin B-12) 1,000 mcg Tablet, Sublingual
1,000 mcg SUBLINGUAL DAILY
albuterol sulfate 90 mcg/actuation HFA aerosol inhaler
2 puff INHALATION R BIDPRN PRN (Reason: SOB)
insulin aspart U-100 [Novolog FlexPen U-100 Insulin] 100 unit/mL (3 mL) insulin pen
30 - 100 unit SC AC
Patient Comments:
04/11/2025, pt. states to inject between 30-100 units AC per a sliding scale, but does not know what that siding scale is.
insulin glargine [Lantus Solostar U-100 Insulin] 100 unit/mL (3 mL) insulin pen
45 unit SC HS
Berberine
2 cap PO DAILY
Vitamin B3
1 cap PO DAILY
vitamin A
2 tab PO DAILY
Discontinued
amlodipine 10 mg Tablet
0 mg PO .SEE BELOW
Patient Comments:
04/11/2025, per pt., senior production planner at told him to d/c this med. during this current admission to the hospital. Pt. was taking 10 mg HS for the past week and believes that it is the reason why he was admitted.
metoprolol succinate 25 mg Tablet Extended Release 24 Hr
0 mg PO .SEE BELOW
Patient Comments:
04/11/2025, pt. was taking 25 mg HS, but states that they changed his prescription to 12.5 mg BID during this admission.
Discharge Orders:
Discharge Patient (As Directed); Ordered 04/11/25
Ordered By: Porfirio Savage
Discharge Date and Time
Print Language: ISRAELI
== END 2025-04-11 15:44 | disposition home or self-care (01) ==
LOC: 4 EAST ACU 15:06
PROVIDERS: ADMITTING PHYSICIAN Internal Medicine; ATTENDING PHYSICIAN Hospitalist; EMERGENCY PHYSICIAN Emergency Medicine; FAMILY PHYSICIAN Family Medicine; OTHER PHYSICIAN Internal Medicine Cardiovascular Disease; OTHER PHYSICIAN Specialist
PROC: 5A09357 Assistance with Respiratory Ventilation, Less than 24 Consecutive Hours, Continuous Positive Airway Pressure (ICD-10-PCS; 2025-04-11)
DX: R60.0 Localized edema (principal); R06.09 Other forms of dyspnea; I16.0 Hypertensive urgency; E11.40 Type 2 diabetes mellitus with diabetic neuropathy, unspecified; I25.10 Atherosclerotic heart disease of native coronary artery without angina pectoris; G47.33 Obstructive sleep apnea (adult) (pediatric); I25.2 Old myocardial infarction; J44.89 Other specified chronic obstructive pulmonary disease; E04.1 Nontoxic single thyroid nodule; M48.00 Spinal stenosis, site unspecified; K80.20 Calculus of gallbladder without cholecystitis without obstruction; K76.0 Fatty (change of) liver, not elsewhere classified; K21.9 Gastro-esophageal reflux disease without esophagitis; N17.9 Acute kidney failure, unspecified; N18.31 Chronic kidney disease, stage 3a; E78.1 Pure hyperglyceridemia; E66.01 Morbid (severe) obesity due to excess calories; M10.9 Gout, unspecified; Q21.12 Patent foramen ovale; E11.22 Type 2 diabetes mellitus with diabetic chronic kidney disease; I12.9 Hypertensive chronic kidney disease with stage 1 through stage 4 chronic kidney disease, or unspecified chronic kidney disease; Z79.4 Long term (current) use of insulin; Z68.41 Body mass index [BMI] 40.0-44.9, adult; Z79.85 Long-term (current) use of injectable non-insulin antidiabetic drugs; Z86.73 Personal history of transient ischemic attack (TIA), and cerebral infarction without residual deficits; Z79.899 Other long term (current) drug therapy; Z95.5 Presence of coronary angioplasty implant and graft
CPT/HCPCS: 71046; 71275; 80053; 80061; 81003; 82570; 82962; 83036; 83735; 83880; 84156; 84443; 84484; 85025; 85027; 85610; 93005; 93306; 93970; 94660; 96374; 99285; G0378; Q9967